=== PATIENT | female | born 1960 | race Caucasian/White ===

== ENCOUNTER 2018-08-21 09:11 | Day surgery (SDC) | payer OTHER ==
[2018-08-21] MEDS ORDERED: FENTAnyl 50 MCG/ML VIAL (10:32)
[2018-08-21] MEDS ORDERED: MIDAZOLAM 1 MG/ML 2 ML INJ ×2 (10:32)
== END 2018-08-21 12:48 | disposition home or self-care (01) ==
LOC: GIL 09:11
DX: Z12.11 Encounter for screening for malignant neoplasm of colon (principal); D12.2 Benign neoplasm of ascending colon
CPT/HCPCS: 45380; 88305